=== PATIENT | female | born 1990 ===

== ENCOUNTER 2017-01-12 07:52 | Day surgery (SDC) | payer OTHER ==
[2017-01-06 07:12] VITALS: BMI 25.8
[2017-01-12] MEDS: cefTRIAXone IV 1 gm in Dextros 50 ML IVPB ONE ×2 (07:38→08:55)
[~2017-01-12 07:52] MED LIST: Iohexol 240 (50 ml) ONE; Lactated Ringer's 500 ML IV ONE; Lidocaine 2% Jelly (Uro-Jet) ONE
[2017-01-12] MEDS ORDERED: Midazolam 2 MG/2 ML VIAL ONE ×2 (08:55→09:03)
[2017-01-12] MEDS ORDERED: Propofol 10 mg/ml Inj (20 ML) ONE (08:55)
[2017-01-12] MEDS ORDERED: HYDROmorphone 0.5 mg/0.5 ml ISec IVP PRN (09:19)
--- NOTE | 2017-01-12 09:29 | PCM.SURG1 ---
Surgeon's Initial Post Op Note - Surgeon's Notes Surgeon: christian wolfe [employer] Worker: none Type of Anesthesia: IV Sedation Pre-Operative Diagnosis: hematuria. uti Operative Findings: same. trigonitis. partially duplicated L collecting system Post-Operative Diagnosis: same Operation Performed: cysto. bilat rtg pyelogram. bladder bx and fulg. eua Specimen/Specimens Removed: urine, bladder bx Estimated Blood Loss: EBL {In ML}: 0 Blood Products Given: N/A Drains Used: No Drains Date of Surgery/Procedure: 01/12/17 Time of Surgery/Procedure: 09:29
[2017-01-12 10:02] VITALS: O2SAT 100
[2017-01-12 10:47] VITALS: BP 112/60; PULSE 65; RESP 18; TEMP 98
--- NOTE | 2017-01-12 12:09 | RAD ---
HISTORY: HEMATURIA COMPARISON: No prior. FINDINGS: BOWEL: Normal. No obstruction. No free air. BONES: Normal. OTHER FINDINGS: None. IMPRESSION: No significant or acute findings to account for/ related to the clinical presentation.
--- NOTE | 2017-01-12 12:17 | RAD ---
PROCEDURE: Intraoperative Fluoroscopy. 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 FINDINGS: Fluoroscopic assistance was provided for retrograde study. Please fluoroscopic time (continuous mode) utilized during the procedure: 18 seconds. Submitted images from the current procedure: 8.0.
--- NOTE | 2017-01-13 13:42 | OP ---
PROCEDURE DATE: 01/12/2017 PREOPERATIVE DIAGNOSES: History of urinary tract infection and history of hematuria. 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 PROCEDURE: Cystoscopy, bilateral retrograde pyelogram, bladder biopsy, and fulguration. Exam under anesthesia. SURGEON: Dr. Ceci Ahmadi DESCRIPTION OF PROCEDURE: The patient received perioperative antibiotics. The patient was placed in lithotomy position. The genitalia prepped and draped sterilely. Sedation was provided by the anesthesiologist. The procedure was performed with video endoscopic control as well as under fluoroscopic control. A 22-[place] cystoscope sheath was introduced with obturator. The patient was noted to have urethral stenosis and required dilation with Andrez films to allow subsequent passage of the cystoscope. The urethra and bladder were inspected with 30-degree and 70-degree lenses. FINDINGS: There was slight bladder trabeculation. There was no bladder tumor. There was no bladder stone. There was moderate inflammation of the trigone. The ureteral orifices were in normal position and shape. There was no bladder diverticulum. Occlusive tip left retrograde ureteropyelogram was performed. Iodinated contrast to infill the cone tip catheter into each ureteral orifice. The ureter ureters and kidneys reviewed sequentially under fluoroscopy. The right retrograde pyelogram was first performed. The right retrograde pyelogram demonstrates mild fullness of the collecting system. There was no obstruction. There was no significant celiac disease. There was good drainage on the post-drainage films. 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 The ureter was of normal caliber. There was no evidence of filling defects or obstruction. There was good drainage noted on post-drainage films. There was no filling defect in either collecting system or ureter. The bladder was re-inspected with 72 and confirmed the above findings. The abnormal mucosa on the trigone were biopsied. The mucosa was noted to be pale and slightly granular in . There were some changes consistent with squamous metaplasia as well as with chronic cystitis. Cold-cup biopsy was performed. Fulguration was performed with electrocautery. Hemostasis was complete. The bladder was then drained. Cystoscope sheet removed. Exam under anesthesia was performed. There was no abdominopelvic mass fixation and no induration. The patient tolerated the procedure without complications. Ceci Ahmadi MD cc: Patient chart and Ceci Ahmadi MD(?)
== END 2017-01-12 11:45 | disposition home or self-care (01) ==
LOC: C.SDS 07:52
PROVIDERS: ATTEND Urology
DX: N30.81 Other cystitis with hematuria (principal); R31.0 Gross hematuria; N30.31 Trigonitis with hematuria
CPT/HCPCS: 52204; 74000; 76000; 87086; 88104; 88305; C1758; J0696; J7120